=== PATIENT | female | born 1980 | race Caucasian/White ===

== ENCOUNTER 2017-01-15 03:30 | Inpatient (IN) | payer MEDICAID ==
[~2017-01-15] VITALS: Ht 165.1 cm; Wt 71.7 kg
[~2017-01-15 03:30] MED LIST: NALBUPHINE 10 MG/ML AMP IVP ONE
[2017-01-15] MEDS ORDERED: OXYTOCIN 20 UNITS/LR PREMIX 1,000 ML IV ONE (03:58)
[2017-01-15] MEDS ORDERED: OXYTOCIN 10 UNITS/ML VIAL ONE (03:58)
[2017-01-15] MEDS ORDERED: LIDOCAINE 1% 50 ML ONE (03:58)
[2017-01-15] MEDS ORDERED: PROMETHAZINE 25 MG/ML VIAL ONE (04:06)
[2017-01-15] MEDS ORDERED: NALBUPHINE HYDROCHLORIDE 10 MG/ML VIAL ONE (04:06)
[2017-01-15] MEDS ORDERED: LACTATED RINGERS 1,000 ML IV SCH (04:06)
[2017-01-15] MEDS ORDERED: METHYLERGONOVINE 0.2 MG/ML AMP IM PRN (04:10)
[2017-01-15] MEDS ORDERED: LIDOCAINE 1% 500 MG/50 ML VIAL INJ SCH (04:10)
[2017-01-15] MEDS ORDERED: NALBUPHINE HYDROCHLORIDE 10 MG/ML VIAL IVP PRN (04:10)
[2017-01-15] MEDS ORDERED: OXYTOCIN 10 UNITS/ML VIAL IM SCH (04:10)
[2017-01-15] MEDS ORDERED: OXYTOCIN 20 UNITS/LR PREMIX 1,000 ML IV SCH ×2 (04:10→05:02)
[2017-01-15] MEDS ORDERED: PROMETHAZINE 25 MG/ML VIAL IVP PRN (04:10)
[2017-01-15] MEDS ORDERED: ACETAMINOPHEN 325 MG TAB PO PRN (05:05)
[2017-01-15] MEDS ORDERED: MEASLES, MUMPS, AND RUBELLA 1 VIAL SQVAC PRN (05:05)
[2017-01-15] MEDS ORDERED: BISACODYL 5 MG TABEC PO PRN (05:05)
[2017-01-15 05:56] LABS: HEMOGLOBIN 12.4 g/dL (12.0-16.0); LYMPHOCYTES # (AUTO) 0.9 K/uL (2.5-16.5); MONOCYTES # (AUTO) 0.4 K/uL (0.8-1.0); NEUTROPHILS # (AUTO) 7.9 K/uL (1.8-7.7); NEUTROPHILS % (AUTO) 84.3 % (42.2-75.2)
[2017-01-15 06:07] LABS: BASOPHILS % (AUTO) 0.3 % (0.0-2.0); EOSINOPHILS # (AUTO) 0.1 K/uL (0-0.4); EOSINOPHILS % (AUTO) 1.5 % (0.0-4.0); HEMATOCRIT 37.2 % (36-48); LYMPHOCYTES % (AUTO) 9.8 % (20.5-51.1); MEAN CORPUSCULAR HEMOGLOBIN 30 pg (27-31); MEAN CORPUSCULAR HGB CONC 33 g/dL (33-37); MEAN CORPUSCULAR VOLUME 89 fL (80-94); MONOCYTES % (AUTO) 4.1 % (1.7-9.3); PLATELET COUNT (AUTO) 176 K/uL (140-450); RED CELL DISTRIBUTION WIDTH 14.3 % (11.6-13.7); WHITE BLOOD COUNT (AUTO) 9.3 K/uL (4.8-10.8)
[2017-01-15 06:14] LABS: ANION GAP 11.2 (8-16); CALCIUM 8.1 mg/dL (8.5-10.1); CARBON DIOXIDE 25.9 mmol/L (21-32); CREATININE 0.5 mg/dL (0.6-1.3); POTASSIUM 4.1 mmol/L (3.5-5.1)
[2017-01-15 06:20] LABS: ALBUMIN 2.4 g/dL (3.4-5.0); TOTAL BILIRUBIN 0.3 mg/dL (0.0-1.0); TOTAL PROTEIN, SERUM 6.8 g/dL (6.4-8.2)
[2017-01-15 06:59] LABS: HIV RAPID SCREEN NON-REACTIVE (NON REACTIV)
[2017-01-15 07:23] VITALS: BP 103/65
[2017-01-15] MEDS ORDERED: PREN-546 PO (07:30)
[2017-01-15] MEDS ORDERED: FERR-193 PO (07:30)
[2017-01-15 08:06] LABS: RAPID PLASMA REAGIN NON-REACTIVE (Non Reactiv)
[2017-01-15] MEDS: oxyCODONE/APAP 5/325 MG 1 TAB TAB PO PRN ×2 (08:32→21:58)
--- NOTE | 2017-01-15 09:41 | NUR ---
PATIENT HAS BEEN SCREENED AND CATEGORIZED LOW NUTRITION RISK. PATIENT WILL BE SEEN WITHIN 7 DAYS OF ADMISSION. 01/21/[address]
[2017-01-16] MEDS: oxyCODONE/APAP 5/325 MG 1 TAB TAB PO PRN (03:36)
[2017-01-16 08:02] LABS: BASOPHILS # (AUTO) 0.1 K/uL (0.00-0.22); BASOPHILS % (AUTO) 0.9 % (0.0-2.0); EOSINOPHILS # (AUTO) 0.1 K/uL (0-0.4); EOSINOPHILS % (AUTO) 1.3 % (0.0-4.0); HEMOGLOBIN 12.5 g/dL (12.0-16.0); LYMPHOCYTES # (AUTO) 3.3 K/uL (2.5-16.5); LYMPHOCYTES % (AUTO) 32.5 % (20.5-51.1); MEAN CORPUSCULAR HEMOGLOBIN 29 pg (27-31); MEAN CORPUSCULAR HGB CONC 32 g/dL (33-37); MEAN CORPUSCULAR VOLUME 90 fL (80-94); MONOCYTES # (AUTO) 0.6 K/uL (0.8-1.0); MONOCYTES % (AUTO) 5.7 % (1.7-9.3); NEUTROPHILS % (AUTO) 59.6 % (42.2-75.2); PLATELET COUNT (AUTO) 208 K/uL (140-450); RED BLOOD CELL COUNT(AUTO) 4.35 MIL/uL (4.20-5.40); RED CELL DISTRIBUTION WIDTH 14.3 % (11.6-13.7); WHITE BLOOD COUNT (AUTO) 10.1 K/uL (4.8-10.8)
[2017-01-17] MEDS ORDERED: ACET-9800 PO (15:09)
[2017-01-17] MEDS ORDERED: FERR-193 PO (15:11)
== END 2017-01-17 16:45 | disposition home or self-care (01) | DRG 560 ==
LOC: MFCC 03:30
PROVIDERS: ADMIT Obstetrics & Gynecology; ATTEND Obstetrics & Gynecology
PROC: 10E0XZZ Delivery of Products of Conception, External Approach (ICD-10-PCS; principal; 2017-01-15)
PROC: 3E033VJ Introduction of Other Hormone into Peripheral Vein, Percutaneous Approach (ICD-10-PCS; 2017-01-15)
PROC: 10907ZC Drainage of Amniotic Fluid, Therapeutic from Products of Conception, Via Natural or Artificial Opening (ICD-10-PCS; 2017-01-15)
PROC: 3E0234Z Introduction of Serum, Toxoid and Vaccine into Muscle, Percutaneous Approach (ICD-10-PCS; 2017-01-16)
DX: O80 Encounter for full-term uncomplicated delivery (principal); Z23 Encounter for immunization; Z37.0 Single live birth; Z3A.38 38 weeks gestation of pregnancy
CPT/HCPCS: 36415; 59409; 80053; 85025; 86592; 86886; 86900; 86901; 87340; 90715; J2001; J2300; J2550; J2590; J7120